=== PATIENT | male | born 1980 ===

== ENCOUNTER 2025-09-25 21:51 | Emergency (ER) | payer SELFPAY ==
[2025-09-25 22:17] VITALS: BP 117/76; PULSE 89; RESP 18; TEMP 36.8; O2SAT 100
--- NOTE | 2025-09-25 22:34 | PC.NURSE ---
pt ambulatory to intake desk with steady gait and verbally states he is feeling better so he is going to leave. Pt walked out before being seen by provider.
== END 2025-09-25 23:30 | disposition left against medical advice (07) ==
LOC: ANHED 22:46
DX: Z53.21 Procedure and treatment not carried out due to patient leaving prior to being seen by health care provider (principal)
CPT/HCPCS: 99199